=== PATIENT | female | born 1995 | race Caucasian/White ===

== ENCOUNTER 2018-04-11 17:27 | Emergency (ER) | payer MEDICAID ==
[~2018-04-11] VITALS: Ht 160 cm; Wt 77.1 kg
[2018-04-11 17:44] VITALS: Ht 160 cm; Wt 77.1 kg
[2018-04-11 19:57] VITALS: BP 118/59
== END 2018-04-11 19:57 | disposition home or self-care (01) ==
LOC: ED 17:27
DX: N10 Acute pyelonephritis (principal)
CPT/HCPCS: J0696; J1885; J7030